=== PATIENT | male | born 1980 | race Caucasian/White ===

== ENCOUNTER → 2016-11-07 | Outpatient (CLI) | payer OTHER ==
[~2016-11-07] MED LIST: LOSA50TA6 PO; OMEP-110 PO; OMNIPAQUE 350 MG/ML, 100ML BOTTLE ONE; TRAM50TA2 PO
== END | disposition home or self-care (01) ==
LOC: CFH 09:06
PROVIDERS: ATTEND Otolaryngology
DX: H92.02 Otalgia, left ear (principal); R07.0 Pain in throat; M54.2 Cervicalgia
CPT/HCPCS: 70491; Q9967

== ENCOUNTER 2018-05-20 11:16 | Emergency (ER) | payer OTHER ==
[~2018-05-20] VITALS: Ht 170.2 cm; Wt 79.4 kg
[~2018-05-20 11:16] MED LIST changes: +LOSA50TA14 PO; -LOSA50TA6 PO; -OMNIPAQUE 350 MG/ML, 100ML BOTTLE ONE
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
[2018-05-20 11:59] VITALS: BP 135/93
--- NOTE | 2018-05-20 12:19 | NUR ---
PT BACK FROM CT AT THIS TIME.
--- NOTE | 2018-05-20 12:38 | NUR ---
md at bedside to update pt on poc.
== END 2018-05-20 12:59 | disposition home or self-care (01) ==
LOC: ED 12:39
DX: N20.0 Calculus of kidney (principal); I10 Essential (primary) hypertension
CPT/HCPCS: 74176; 99284

== ENCOUNTER 2020-03-29 10:28 | Outpatient (CLI) | payer OTHER ==
[2020-03-29 10:43] LABS: BASOPHILS % (AUTO) 1 % (0-1); EOSINOPHILS % (AUTO) 1 % (1-7); LYMPHOCYTES % (AUTO) 31 % (22-44); MEAN CORPUSCULAR HEMOGLOBIN 30.4 pg (27.5-34.5); MEAN CORPUSCULAR HGB CONC 34.7 g/dL (33.2-36.2); MEAN PLATELET VOLUME 7.2 fL (7.4-10.4); MONOCYTES % (AUTO) 8 % (2-9); NEUTROPHILS % (AUTO) 59 % (42-75); PLATELET COUNT 260 x10^3/uL (130-400); RED BLOOD COUNT 5.23 x10^6/uL (4.38-5.82); RED CELL DISTRIBUTION WIDTH 13.4 % (9.4-14.8)
[2020-03-29 10:44] LABS: MD NO
[2020-03-29 10:53] LABS: ALANINE AMINOTRANSFERASE 85 U/L (12-78); ALBUMIN 4.3 g/dL (3.4-5.0); ANION GAP 8 mmol/L (5-15); CHLORIDE 110 mmol/L (98-107)
[2020-03-29 10:57] LABS: ALKALINE PHOSPHATASE 123 U/L (45-117); BILIRUBIN,TOTAL 0.4 mg/dL (0.2-1.0); CREATININE 1.28 mg/dL (0.7-1.3); TOTAL PROTEIN 7.9 g/dL (6.4-8.2)
== END 2020-03-29 23:59 | disposition home or self-care (01) ==
LOC: LAB 10:28
PROVIDERS: ATTEND Family Medicine
DX: N41.0 Acute prostatitis (principal)
CPT/HCPCS: 36415; 80053; 84153; 85025; 87491; 87591; G0103

== ENCOUNTER → 2020-05-10 | Outpatient (CLI) | payer OTHER ==
[~2020-05-10] MED LIST changes: +OMNIPAQUE 350 MG/ML, 100ML BOTTLE ONE
== END | disposition home or self-care (01) ==
LOC: CFH 12:28
PROVIDERS: ATTEND Family Medicine
DX: N53.12 Painful ejaculation (principal)
CPT/HCPCS: 72193; 82565; Q9967